=== PATIENT | male | born 1975 | race Caucasian/White ===

== ENCOUNTER 2019-08-11 13:40 | Outpatient (CLI) | payer MEDICARE, MEDICAID, SELFPAY ==
--- NOTE | 2019-08-11 14:00 | XR_ITS ---
WS: [id number] ABDOMEN: SUPINE FILM HISTORY: RENAL CALCULI COMPARISON: 12/24/2018 Carson rods are noted over the thoracolumbar region. Contiguous bridging hypertrophic bone format ion along the RIGHT lateral spine. Right kidney: 1.8 cm calcification in the expected location of the RIGHT kidney. There are additional multiple small calcific fragments adjacent to the large calcification. Left kidney: 9 mm calcification expected location of the LEFT kidney with adjacent metallic coils. XR/XR KUB [id number] IMPRESSION: 1. Stone burden has increased in the RIGHT kidney. The largest calcification m easures 1.8 cm with adjacent small calcifications. 2. LEFT renal calcification at 9 mm.
== END 2019-08-11 13:41 | disposition home or self-care (01) ==
LOC: RAD 13:45
PROVIDERS: PCP Nurse Practitioner; Visit Provider Nurse Practitioner Family
DX: N20.0 Calculus of kidney (principal)
CPT/HCPCS: 74018; 81001

== ENCOUNTER 2019-10-05 14:48 | Outpatient (CLI) | payer MEDICARE, MEDICAID, SELFPAY ==
--- NOTE | 2019-10-05 14:30 | XRR_ITS ---
PROCEDURE INFORMATION: Exam: XR Abdomen, 1 View Exam date and time: 10/05/2019 2:53 PM Age: 43 years old Clinical indication: Condition or disease; Kidney or ureter condition; Calculus (stone) in kidney; Prior surgery; Surgery type: Fistula; Additional info: Renal calculi TECHNIQUE: Imaging protocol: XR of the abdomen. Views: Frontal supine view of the abdomen. 1 View. COMPARISON: MA XR KUB 62072 08/11/2019 1:51 PM FINDINGS: Gastrointestinal tract: Normal. No bowel dilation. Intraperitoneal space: Surgical clips seen in the upper central pelvis. Organs: Calcified urinary tract stones are seen in both kidneys the largest is on the right side measuring 21 mm x 14 mm. Bones/joints: Lumbar spine levoscoliosis. Metallic rods are present in the lumbar spine. Osteoarthritis is seen in the lumbar spine. Other findings: Comparison to prior examination similar findings is seen. XR/XR KUB [id number] IMPRESSION: 1. Osteoarthritis, levoscoliosis, and orthopedic hardware lumbar spine 2. Bilateral a caliceal renal stones 3. Postsurgical changes upper central pelvis
== END 2019-10-05 14:49 | disposition home or self-care (01) ==
PROVIDERS: PCP Nurse Practitioner; Visit Provider Urology
DX: N20.0 Calculus of kidney (principal); M47.816 Spondylosis without myelopathy or radiculopathy, lumbar region
CPT/HCPCS: 74018

== ENCOUNTER 2019-10-12 10:41 | Outpatient (CLI) | payer MEDICARE, MEDICAID, SELFPAY ==
--- NOTE | 2019-10-12 10:30 | CT_ITS ---
WS: [id number] CT ABDOMEN PELVIS TECHNIQUE: Noncontrast CT of the abdomen and pelvis with coronal and sagittal reformatted images. CLINICAL INFORMATION: RENAL STONE COMPARISON: Multiple prior KUBs including October 05, 2019. KUBs dating back to DLP: 1072.[address] scans at [facility] use at least one of these dose optimization techniques: automat ed exposure control; mA and/or kV adjustment per patient size (includes targeted exams where dose is matched to clinical indication); or iterative reconstruction. FINDINGS: Evidence of prior embolization coils left kidney. Bilateral renal calculi largest on the right measur ing 1.3 x 1.1 cm . Smaller subcentimeter right calyceal tip calculi nonobstructing. Normal decompress ed right ureter. Several subcentimeter nonobstructing left renal parenchymal calculi. Lower pole left renal parenchyma l calculus measuring 1.1 x 0.7 CM. Left renal cortical atrophy. No obstructing ureteral calculi bilat erally. Mild diffuse bladder wall thickening. Bladder is contracted. Noncontrast liver is normal. Noncontrast spleen is normal. Normal GE junction. Lung bases are well ae rated. Prior Carson apolinar fixation with scoliosis thoracolumbar spine. Extensive thoracolumbar fusi on. Noncontrast pancreas is unremarkable. Normal caliber abdominal aorta. Prior partial sigmoid resection with anastomosis. Sigmoid colon appears normal. No evidence of high-g rade small or large bowel obstruction. Appendix is normal. Fat-containing inguinal hernias. No inguin al lymphadenopathy. No free fluid in the pelvis. CT/CT kidney stone [id number] IMPRESSION: 1. Bilateral renal parenchymal calculi. No obstructing renal or ureteral calcu li. Left renal cortical atrophy. 2. Large stone in the right renal pelvis measuring 1.3 x 1.1 cm. No evidence o f obstruction. 3. Prior sigmoid anastomosis. Sigmoid colon appears normal. 4. Mild diffuse bladder wall thickening. Bladder is contracted. 5. No free fluid in the pelvis. 6. Extensive thoracolumbar scoliosis with Carson apolinar fixation.
== END 2019-10-12 10:42 | disposition home or self-care (01) ==
LOC: RAD 10:43
PROVIDERS: Visit Provider Urology
DX: N20.0 Calculus of kidney (principal)
CPT/HCPCS: 74176

== ENCOUNTER 2019-10-17 10:26 | Day surgery (SDC) | payer MEDICARE, MEDICAID, SELFPAY ==
[2019-10-17] VITALS (7 sets, daily range): BP systolic 85–127; BP diastolic 60–87; PULSE 52–58; RESP 15–20; TEMP 36.2–37; O2SAT 96–100
--- NOTE | 2019-10-17 10:29 | XR_ITS ---
WS: [id number] ABDOMEN: SUPINE FILM HISTORY: Preop right ESWL COMPARISON: 10/05/2019 Normal bowel gas pattern. Extensive scoliosis thoracolumbar spine with Carson rods. Right kidney: Largest calcification over the RIGHT kidney measures 1.8 cm diameter. There are numerou s additional small fragments surrounding this larger stone. The large calcification has moved positio n and may now be retrograde into the lower pole of the RIGHT kidney. Left kidney: Numerous calcifications with the largest measuring 9 mm, no change. XR/XR KUB 13863 IMPRESSION: 1. Large RIGHT renal calcification measuring 1.8 cm. Calcification has changed position and may have gone retrograde into the renal pelvis. There are multipl e adjacent fragments surrounding the large calcification. 2. LEFT nephrolithiasis, unchanged.
[2019-10-17] MEDS: sodium chloride 0.9% 1,000 ML 30 ML IV (11:15)
[2019-10-17 11:23] LABS: Basophils % 0.3 %; Eosinophils # 0.5 10^3/uL (0.0-0.8); Eosinophils % 6.8 %; Hematocrit 47.8 % (42.0-52.0); Hemoglobin 15.2 g/dL (11.7-16.6); Lymphocytes # 1.8 10^3/uL (0.8-4.8); Lymphocytes % 24.5 %; Mean Corpuscular HGB Conc 31.8 g/dL (30.0-36.0); Mean Corpuscular Hemoglobin 26.9 pg (28.0-34.0); Mean Corpuscular Volume 84.5 fL (80-94); Mean Platelet Volume 10.7 fL (7.4-10.4); Monocytes # 0.6 10^3/uL (0.2-0.9); Monocytes % 7.6 %; Neutrophils # 4.46 10^3/uL (1.8-7.7); Neutrophils % 60.7 %; Nucleated Red Blood Cells % 0 %; Platelet Count 272 10^3/cmm (130-400); Red Blood Count 5.66 10^6/uL (4.1-5.3); Red Cell Distribution Width 13.3 % (12.1-15.1); White Blood Count 7.4 10^3/uL (4.0-10.0)
--- NOTE | 2019-10-17 11:23 | P.ANESASSM_ITS ---
Pre-Anesthetic Assessment Pre-Anesthetic Assessment: Height/Weight: Height 1.47 m Weight 68.039 kg Temp Pulse Resp BP Pulse Ox 98.6 F 58 L 18 127/87 96 10/17/19 10:50 10/17/19 10:50 10/17/19 10:50 10/17/19 10:50 10/17/19 10:50 Preop Diagnosis: Large right renal calculi Proposed Procedure: Operation Date: 10/17/19 12:00 Proposed Procedures p Cystoscopy 89447 29805 N20.0(Not Applicable) - Fred Kaye MD s Ureteral Stent Placement(Right) - Fred Kaye MD s ESWL(Not Applicable) - Fred Kaye MD Familial anesthetic complications: HX malignant hyperthermia causing code Was Beta Beatrice taken within 24 hours: Yes Last intake: Intake Last Liquid Date 10/16/19 Last Liquid Time 21:00 Last Solid Date 10/16/19 Last Solid Time 13:00 Social: Social History: No alcohol and No tobacco Exam: Pre-Anes Outpt Exam: alert, oriented x 3, clear to auscultation bila terally and regular rate & rhythm Airway: Submandibular: WNL MP: 4 Dentition: Other (missing) A dditional comments: large neck circumference, small mouth opening Pulmonary: Comments: Vaping lung injury last year (december) pneumonia several years ago (aspirated in recovery room) and ended up with pulmonary edema CV/HEM: CV/HEM: HTN and Murmur (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, but its gone now) : Comments: kidney stones Musc/skel: Musc/skel: Scoliosis 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, generalized weakness though Anesthetic Plan: ASA status: 3 Anesthesia: General (TIVA) Risk of > 500 ml blood loss (7ml/kg in children): No Meds/Allergies Current Medications: Current Medications Generic Name Dose Route Start Last Admin Trade Name Freq PRN Reason Stop Dose Admin Sodium Chloride 1,000 mls @ 30 ml s/hr 10/17/19 11:00 10/17/19 11:15 Sodium Chloride 0.9% IV 10/18/19 10:59 30 mls/hr .Q24H CHRISS Administration PFSH Anesthesia PFSH: Medical History Acute cystitis without hematuria Chronic SI joint pain Depression Hypertension Muscular dystrophy Kumar Renal calculi Unspecified renal colic Surgical History CVF (colovesical fistula) Repaired 01/2019 History of foot surgery History of spinal surgery History of surgery on upper extremity Hx of colonoscopy with polypectomy Status post laser lithotripsy of ureteral calculus Family History Family/Other Diabetes Sister Scoliosis Social History Smoking and tobacco status: former smoker Alcohol intake: never Adopted: No Caregiver/support person: No Marital status: Single Current occupational status: disabled History of recent travel: No Current gender identity: Male Data Anesthesia CBC & Chem 7: 10/17/19 11:15 10/17/19 11:15 Cardiac Studies: No Data to Display
[2019-10-17 11:53] LABS: Alanine Aminotransferase 31 U/L (0-41); Albumin Level 4.1 g/dL (3.5-5.2); Alkaline Phosphatase 77 IU/L (40-130); Anion Gap 13.2 (5-19); Aspartate Amino Transferase 26 U/L (0-40); Blood Urea Nitrogen 13 mg/dL (6-20); Calcium 9.2 mg/dL (8.5-10.5); Carbon Dioxide 26 mmol/L (22-29); Chloride 102 mmol/L (98-107); Globulin 2.7 g/dL (1.3-4.6); Glucose 94 mg/dL (65-115); Osmolality Calculated 280 mOsm/kg (285-295); Potassium 4.2 mmol/L (3.5-5.1); Sodium 137 mmol/L (136-145); Total Bilirubin 0.4 mg/dL (0.15-1.2); Total Protein 6.8 g/dL (6.6-8.7)
--- NOTE | 2019-10-17 12:15 | P.HPUD_ITS ---
Surgery/Procedure H&P Update DATE OF PROCEDURE: October 17, 2019 DATE H&P PERFORMED: 10/05/19 H&P UPDATE INFORMATION: I have reviewed H&P completed within last 30 days, I have examined patient prior to procedure, No changes to prior documentation and H&P is in [facility] [place] on date indicated PREOP DIAGNOSIS: Large right renal calculi PLANNED PROCEDURE: Operation Date: 10/17/19 12:00 Proposed Procedures p Cystoscopy [id number] 29933 N20.0(Not Applicable) - Fred Kaye MD s Ureteral Stent Placement(Right) - Fred Kaye MD s ESWL(Not Applicable) - Fred Kaye MD
--- NOTE | 2019-10-17 12:16 | P.OP_ITS ---
Operative Report Date of procedure: October 17, 2019 Pre-op Diagnosis: Large right renal calculi Post-op diagnosis: same Procedure Done: 1. Cystoscopy with right ureteral stent placement 2. Extracorporeal shockwave lithotripsy right renal calculus Implants: Right ureteral stent Specimens removed/disposition: None Pathology: none sent Surgeon: Vargas Anesthesia: General Estimated blood loss: None Complications: None Findings: Large right renal pelvic stone easily identified and treated with 2500 shocks. Good change. Disposition: PACU Brief History: Tom Acevedo is a very pleasant 33-year-old white male with a history of recurrent urolithiasis recently discovered to have an increasing size and mobility to the right renal pelvic stone. CT scan preoperatively showed the stone in the renal pelvis but nonobstructing. Shortly before the CT scan it is been located at the [facility]. We elected to proceed with treatment initially with stent placement followed by ESWL. Based on the size of the stone it is likely that he will require more than 1 treatment and this was reviewed with him preoperatively. Procedure: After routine preoperative evaluation examination and obtaining of informed consent he was taken to the operating suite on 10/17/2019 where general anesthesia was administered without difficulty after appropriate timeout was performed, SCDs confirmed to be functioning, preoperative antibiotics administered, beta-abhishek protocol confirmed. Malignant hyperthermia precautions were taken by anesthesia. Prepped and draped in usual sterile fashion in dorsolithotomy position pain careful attention to avoiding pressure points. 21 Palestinian cystoscope with 30 degree lens was introduced into the urethral meatus and advanced into the bladder under videoscopy. Bladder cyst have manically examined and found to have no stones or other gross abnormalities. Flexible tip guidewire was then advanced up the right ureter bypassing the stone in the renal pelvis and a 7 Palestinian by 26 cm double-pigtail stent was advanced over the guidewire through the cystoscope into appropriate position as confirmed via fluoroscopy and cystoscopy. Bladder was drained. He was then repositioned in supine position pain careful attention to avoiding pressure points. The stone was brought to the focal point utilizing biplanar fluoroscopy with the shock head positioned posteriorly. Shockwave was initiated at a rate of 60 with an intensity of 1 and advanced to an intensity of 4. After approximately 300 shocks a several minute pause was conducted. A total of 2500 shocks were administered with position changes as indicated. Stone was easily identifiable. Change was noted. Tolerated procedure well without complications and was awakened in the operating room and returned to recovery in stable condition. PLANS: 1. Follow-up in approximately 2 weeks with MICHAEL. I expect that he will require second treatment.
[2019-10-17] MEDS: levofloxacin-dextrose 5 % 500 MG/100 ML PREMIX 100 MG IV (12:19)
--- NOTE | 2019-10-17 13:33 | SUR.PHASEI ---
1331 PATIENT TO PACU FROM OR. RR EVEN AND UNLABORED. SPO2 98% ON SIMPLE MASK AT 8L.
--- NOTE | 2019-10-17 13:53 | SUR.PHASEI ---
1350 PATIENT TO OPS. TOLERATING ICE CHIPS. RR EVEN AND UNLABORED. NO DISTRESS.
[2019-10-17] MEDS: HYDROcodone-acetaminophen 5-325 mg Tablet 1 TAB PO (14:18)
== END 2019-10-17 14:45 | disposition home or self-care (01) ==
PROVIDERS: Visit Provider Urology
PROC: 0TJB8ZZ Inspection of Bladder, Via Natural or Artificial Opening Endoscopic (ICD-10-PCS; CPT 52000; principal; 2019-10-17 12:00)
PROC: (CPT 50605; 2019-10-17 12:00)
PROC: (CPT 50590; 2019-10-17 12:00)
DX: N20.1 Calculus of ureter (principal); I10 Essential (primary) hypertension; F32.9 Major depressive disorder, single episode, unspecified; Z87.891 Personal history of nicotine dependence
CPT/HCPCS: 50590; 52332; 12345; 36415; 74018; 80053; 85025; C2625; J1956; J2704; J3010; J3490; J7030

== ENCOUNTER 2019-10-28 08:46 | Outpatient (CLI) | payer MEDICARE, MEDICAID, SELFPAY ==
--- NOTE | 2019-10-28 08:30 | XR_ITS ---
WS: [id number] KUB, 10/28/2019 Clinical Data: Stones Comparison: KUB, 10/17/2019. Findings: The large right renal calculus has fragmented. Small fragments overlying the inferior pole of the rig ht kidney. There is a fragment in the right ureteropelvic junction. A right ureteral catheter has bee n inserted. There are left renal calculi. There are sutures overlying the inferior pole of the left k idney. The patient has a levorotoscoliosis of the lumbar spine and there are Carson rods extendin g from the thoracic vertebral bodies inferiorly to the L4 vertebral body level. There are surgical st aples in the region of the sigmoid colon. XR/XR KUB [id number] Impression: 1. Fragmentation of large right renal calculus with fragments in the inferior p ole of the right kidney and the proximal right ureter. 2. Insertion of right ureteral catheter. 3. No change in left renal calculi.
== END 2019-10-28 08:47 | disposition home or self-care (01) ==
LOC: RAD 08:49
PROVIDERS: Visit Provider Urology
DX: N20.0 Calculus of kidney (principal)
CPT/HCPCS: 74018; 81001

== ENCOUNTER 2019-10-31 08:35 | Outpatient (CLI) | payer MEDICARE, MEDICAID, SELFPAY ==
--- NOTE | 2019-10-31 13:00 | XR_ITS ---
WS: [id number] EXAM: ABDOMINAL KUB DATE OF EXAMINATION: 10/31/2019, 0847 hours COMPARISON: None. HISTORY: Patient is 43 years old with follow-up kidney stones. FINDINGS: Right double-J ureteral stent remains in place. Calcifications along the mid right ureter are again s een. There is interval migration of several of the calcifications. I question if one of the larger ca lcifications noted previously in the area of the renal pelvis juncture has migrated superiorly back i nto the kidney. Several calcifications are seen over the mid to inferior right kidney silhouette. Himanshu cification overlying the left kidney silhouette similar. Endovascular coiling over the left kidney al so similar. Staple line for prior colon surgery in the false pelvis region. Spine hardware rods noted again. Scoliosis in the spine again noted. XR/XR KUB [id number] IMPRESSION: Right double-J ureteral stent remains in place. I question if the largest calci fication in the area of the right renal pelvis and proximal ureter has migrated back into the kidney. Additional calcifications appear to have progressed infe riorly down along the stent now located around the L5 level. No real change in number and position of calcifications involving the left kidn ey.
== END 2019-10-31 08:36 | disposition home or self-care (01) ==
LOC: RAD 08:38
PROVIDERS: Visit Provider Urology
DX: N20.0 Calculus of kidney (principal); Z96.0 Presence of urogenital implants
CPT/HCPCS: 74018

== ENCOUNTER 2019-11-07 10:30 | Day surgery (SDC) | payer MEDICARE, MEDICAID, SELFPAY ==
[2019-11-04 13:37] VITALS: BMI 31.3
--- NOTE | 2019-11-07 10:31 | XR_ITS ---
WS: [id number] ABDOMEN KUB CLINICAL INFORMATION: Renal/ureteral calculi. COMPARISON: October 31, 2019 FINDINGS: Right double-J ureteral stent appears stable. Stable right renal parenchymal calculi. Similar-appeari ng fragmented calculi along the right mid ureteral stent. Stable left renal parenchymal calculi and e mbolization coils. Thoracolumbar scoliosis. Carson rods. Surgical anastomosis in the pelvis XR/XR KUB [id number] Impression: 1. Stable right double-J ureteral stent. 2. Similar-appearing bilateral renal parenchymal calculi with fragmented calcu li along the mid right ureteral stent
[2019-11-07 10:56] VITALS: BP 128/79; PULSE 59; RESP 18; TEMP 36.8; O2SAT 96
[2019-11-07] MEDS: sodium chloride 0.9% 1,000 ML 30 ML IV (11:00)
--- NOTE | 2019-11-07 11:10 | ANES.PREANE2 ---
Pre-Anesthetic Assessment Pre-Anesthetic Assessment: Height/Weight: Height 1.47 m Weight 68.039 kg Temp Pulse Resp BP Pulse Ox 98.2 F 59 L 18 128/79 96 11/07/19 10:56 11/07/19 10:56 11/07/19 10:56 11/07/19 10:56 11/07/19 10:56 Preop Diagnosis: Residual fragments right kidney following ESWL Proposed Procedure: Operation Date: 11/07/19 12:00 Proposed Procedures p ESWL 76274 N20.0(Not Applicable) - Fred Kaye MD Was Beta Beatrice taken within 24 hours: Yes Last intake: Intake Last Liquid Date 11/06/19 Last Liquid Time 20:30 Last Solid Date 11/06/19 Last Solid Time 10:30 Social: Social History: No alcohol and No tobacco Exam: Pre-Anes Outpt Exam: alert, oriented x 3, clear to auscultation bilaterally and regular rate & rhythm Airway: Submandibular: WNL MP: 2 History/ROS: No significant history except as noted and No significant complaints Pulmonary: Pulmonary: None reported CV/HEM: CV/HEM: HTN Comments: History of Pediatric Murmur no longer clinically significant : Comments: Recurrent renal calculi Hepatic: Hepatic: None reported GI: GI: None reported Metabolic: Metabolic: None reported Musc/skel: Comments: Muscular Dystrophy Anesthetic Plan: ASA status: 3 Anesthesia: General Other: PATIENT HAS A PERSONAL EPISODE OF MALIGNANT HYPERTHERMIA Meds/Allergies Current Medications: Current Medications Generic Name Dose Route Start Last Admin Trade Name Freq PRN Reason Stop Dose Admin Sodium Chloride 1,000 mls @ 30 ml s/hr 11/07/19 07:30 11/07/19 11:00 Sodium Chloride 0.9% IV 11/08/19 07:29 30 mls/hr .Q24H CHRISS Administration PFSH Anesthesia PFSH: Medical History Acute cystitis without hematuria Chronic SI joint pain Depression Hypertension Muscular dystrophy Kumar Renal calculi Unspecified renal colic Surgical History CVF (colovesical fistula) Repaired 01/2019 History of foot surgery History of spinal surgery History of surgery on upper extremity Hx of colonoscopy with polypectomy Status post laser lithotripsy of ureteral calculus Family History Family/Other Diabetes Sister Scoliosis Social History Smoking and tobacco status: former smoker Alcohol intake: never Adopted: No Caregiver/support person: No Marital status: Single Current occupational status: disabled History of recent travel: No Current gender identity: Male Data Anesthesia Cardiac Studies: No Data to Display
--- NOTE | 2019-11-07 12:17 | W.PM.OPSUD ---
Surgery/Procedure H&P Update DATE OF PROCEDURE: November 07, 2019 DATE H&P PERFORMED: 10/31/19 H&P UPDATE INFORMATION: I have reviewed H&P completed within last 30 days, I have examined patient prior to procedure, Changes to prior documentation as noted here and H&P is in [facility] EMR on date indicated PREOP DIAGNOSIS: Residual fragments right kidney following ESWL PLANNED PROCEDURE: Operation Date: 11/07/19 12:00 Proposed Procedures p ESWL 09378 N20.0(Not Applicable) - Fred Kaye MD
[2019-11-07] MEDS: levofloxacin-dextrose 5 % 500 MG/100 ML PREMIX 100 MG IV (12:20)
--- NOTE | 2019-11-07 13:06 | P.OP_ITS ---
Operative Report Date of procedure: November 07, 2019 Pre-op Diagnosis: Residual fragments right kidney following ESWL Post-op diagnosis: same Procedure Done: 1. Extracorporeal shockwave lithotripsy to multiple right renal calcul/i fragments Specimens removed/disposition: None Pathology: none sent Surgeon: Vargas Oiling Machine Operator: Lithotripsy Regional Engagement Consultant: Bijan Carr Anesthesia: General Estimated blood loss: None Urine output: Not measured Complications: None Findings: 2500 shocks administered to multiple collections of stones with excellent response. Tolerated well Condition: stable Disposition: PACU Brief History: Tom Acevedo is a very pleasant 43-year-old white male with history of recurrent urolithiasis who recently underwent ESWL to a large right renal pelvic stone at time of stenting. He had several clusters of stones that were too large to pass in the right kidney and one area of moderate sized fragments in the proximal ureter. Back now for retreatment. Procedure: After routine preoperative evaluation examination and obtaining of informed consent he was taken to the operating suite on 11/07/2019 where general anesthesia was administered without difficulty after appropriate timeout was performed, SCDs confirmed to be functioning, preoperative antibiotics administered, beta-abhishek protocol confirmed. Malignant hyperthermia precautions were taken due to his history. Positioned supine on the ESWL unit with a posterior shock head position. Treatment was initiated in a rate of 60 and a intensity of 1 and advanced to an intensity of 4. Rate was maintained at 60 throughout. Good change was noted at all areas that were treated with 3 specific areas in the renal pelvis and one area in the proximal ureter. Total of 2500 shocks were administered. A 3-minute pause was conducted after about 300 shocks. Tolerated the procedure well without complications and was awakened in the operating room and returned to the recovery room in stable condition. PLANS: 1. Follow-up in 1 week for possible cystoscopy stent removal. Associated Problem List Diagnoses (1) Renal calculi:
[2019-11-07 13:13] VITALS: BP 96/67; PULSE 69; RESP 12; TEMP 36.1; O2SAT 98
[2019-11-07 13:20] VITALS: BP 94/69; PULSE 69; RESP 16; O2SAT 97
[2019-11-07 13:25] VITALS: BP 102/68; PULSE 63; RESP 17; O2SAT 100
[2019-11-07 13:30] VITALS: BP 98/72; PULSE 67; RESP 18; TEMP 36.4; O2SAT 97
[2019-11-07 14:00] VITALS: BP 109/79; PULSE 64; RESP 18; O2SAT 96
== END 2019-11-07 14:30 | disposition home or self-care (01) ==
PROVIDERS: Visit Provider Urology
PROC: (CPT 50590; principal; 2019-11-07 12:00)
DX: N20.0 Calculus of kidney (principal); I10 Essential (primary) hypertension; Z87.891 Personal history of nicotine dependence; Z96.0 Presence of urogenital implants
CPT/HCPCS: 50590; 12345; 74018; 96365; J1956; J2250; J2704; J3010; J3490; J7030

== ENCOUNTER 2019-11-15 13:33 | Outpatient (CLI) | payer MEDICARE, MEDICAID, SELFPAY ==
--- NOTE | 2019-11-15 13:15 | XRR_ITS ---
PROCEDURE INFORMATION: Exam: XR Abdomen, 1 View Exam date and time: 11/15/2019 1:50 PM Age: 43 years old Clinical indication: Condition or disease; Kidney or ureter condition; Calculus (stone) in kidney; Additional info: Kidney stone TECHNIQUE: Imaging protocol: XR of the abdomen. Views: Frontal supine view of the abdomen. 1 View. COMPARISON: MA XR KUB [id number] 11/07/2019 10:38 AM FINDINGS: Gastrointestinal tract: Normal. No bowel dilation. Intraperitoneal space: There are postsurgical sutures in the upper central pelvis. Organs: The stones were present on prior examination and now appears decreased in density . The left kidney discloses multiple caliceal stones in the upper pole collecting system measuring 6 mm, the mid collecting system measuring 2.2 mm, and a conglomerate collection of stones in the lower pole collecting system the largest stone measures 9.6 mm x 7.8 mm. there are metallic wire near the lower pole of the left kidney stable since prior Vasculature: A double-J ureteral stent is in place on the right side appearing well positioned. The right kidney shows faint caliceal stones lower pole. the largest of these stones measures 7 mm. Bones/joints: The lumbar spine shows osteoarthritis and levoscoliosis status post placement of metallic rods. XR/XR KUB [id number] IMPRESSION: 1. No acute GI abnormality. 2. Double-J ureteral stent in good position on the right side. 3. Multiple bilateral caliceal stones 4. Metallic wire in the left lower quadrant 5. Lumbar spine osteoarthritis, levoscoliosis, and metallic rods. 6. A surgical sutures upper central pelvis
== END 2019-11-15 13:34 | disposition home or self-care (01) ==
LOC: RAD 13:36
PROVIDERS: Visit Provider Urology
DX: N20.0 Calculus of kidney (principal); Z96.0 Presence of urogenital implants; M47.816 Spondylosis without myelopathy or radiculopathy, lumbar region; M41.86 Other forms of scoliosis, lumbar region
CPT/HCPCS: 74018; 81001

== ENCOUNTER → 2019-12-19 14:46 | Outpatient (BNVA) | payer MEDICARE, MEDICAID, SELFPAY | PROVIDERS: Visit Provider Family Medicine Adult Medicine | DX: N20.0 Calculus of kidney (principal); I10 Essential (primary) hypertension; G71.00 Muscular dystrophy, unspecified; Z76.89 Persons encountering health services in other specified circumstances; G89.29 Other chronic pain; M53.3 Sacrococcygeal disorders, not elsewhere classified; M41.50 Other secondary scoliosis, site unspecified | CPT/HCPCS: 80053; 81003; 85025; 86140 ==

== ENCOUNTER 2020-02-22 12:38 | Outpatient (CLI) | payer MEDICARE, MEDICAID, SELFPAY ==
--- NOTE | 2020-02-22 12:47 | XRR_ITS ---
PROCEDURE INFORMATION: Exam: XR Abdomen, 1 View Exam date and time: 02/22/2020 12:56 PM Age: 44 years old Clinical indication: Condition or disease; Kidney or ureter condition; Calculus (stone) in kidney; Prior surgery; Surgery type: Colon, kidney, spine; Additional info: Urinary calculus TECHNIQUE: Imaging protocol: XR of the abdomen. Views: Frontal supine view of the abdomen. 1 View. COMPARISON: CR XR KUB [id number] 11/15/2019 1:47 PM FINDINGS: Gastrointestinal tract: Normal. No bowel dilation. There is mild scattered colonic fecal stasis in the ascending transverse and proximal descending colon. Intraperitoneal space: A circumscribed collection of sutures is seen in the upper central aspect of the pelvis stable since prior examination. Organs: There is caliceal stones in place in the left kidney a in the upper pole measuring 5.6 mm, midpole 3 mm, and lower pole 11 mm. There is a metallic wire in place in the projection of the lower pole of the left kidney. These findings are stable since prior examination. The right kidney is unremarkable. Prior study showed a ureteral stent on the right side which is now been removed. Bones/joints: The lumbar spine shows severe osteoarthritis and levoscoliosis. A metallic apolinar is in place extending into the proximal aspect of the lumbar spine. XR/XR KUB [id number] IMPRESSION: 1. No acute GI abnormality. 2. Scattered colonic fecal stasis as noted 3. Stable caliceal stones in the left kidney. 4. Lumbar spine osteoarthritis, levoscoliosis, metallic apolinar. 5. Surgical sutures upper central pelvis are 6. Prior ureteral stent on the right side has been removed
== END 2020-02-22 12:39 | disposition home or self-care (01) ==
PROVIDERS: PCP Family Medicine Adult Medicine; Visit Provider Urology
DX: N20.0 Calculus of kidney; Z96.0 Presence of urogenital implants; M47.816 Spondylosis without myelopathy or radiculopathy, lumbar region; K59.89 Other specified functional intestinal disorders
CPT/HCPCS: 74018

== ENCOUNTER 2020-04-18 15:01 | Outpatient (CLI) | payer MEDICARE, MEDICAID, SELFPAY ==
--- NOTE | 2020-04-18 15:00 | XR_ITS ---
WS: [id number] KUB, AP view, 04/18/2020 Clinical Data: RENAL STONE Comparison: KUB, 02/22/2020. Findings: There are calcifications overlying the left kidney. There are small metal surgical items overlying th e left kidney in the inferior pole which have may have been placed after doing a surgical or radiolog ic procedure. There are sutures in the central portion of the superior true pelvis. The patient is had rods to correct a severe scoliosis. The patient has a levoscoliosis of the lumbar spine and a dextroscoliosis of the thoracic spine. There is a large amount of fecal material througho ut the colon. XR/XR KUB [id number] Impression: 1. Multiple left renal calcifications but none on the right. 2. No change in scoliosis, rods for reducing scoliosis, surgical item sin the l eft kidney and charito in the upper true pelvis.
== END 2020-04-18 15:02 | disposition home or self-care (01) ==
LOC: RAD 15:07
PROVIDERS: PCP Family Medicine Adult Medicine; Visit Provider Urology
DX: N20.0 Calculus of kidney (principal)
CPT/HCPCS: 74018; 81003

== ENCOUNTER → 2020-07-06 11:44 | Outpatient (BNVA) | payer MEDICARE, MEDICAID, SELFPAY | PROVIDERS: PCP Family Medicine Adult Medicine; Visit Provider Family Medicine Adult Medicine | DX: G71.00 Muscular dystrophy, unspecified (principal); M41.50 Other secondary scoliosis, site unspecified; I10 Essential (primary) hypertension; M15.9 Polyosteoarthritis, unspecified; M53.3 Sacrococcygeal disorders, not elsewhere classified; M54.5 Low back pain; G89.29 Other chronic pain | CPT/HCPCS: 80053; 85651; 86140 ==

== ENCOUNTER → 2020-07-19 13:42 | Outpatient (BNVA) | payer MEDICARE, MEDICAID, SELFPAY | PROVIDERS: PCP Family Medicine Adult Medicine; Referring Provider Family Medicine Adult Medicine; Visit Provider Anesthesiology Pain Medicine | DX: G89.29 Other chronic pain (principal); M47.816 Spondylosis without myelopathy or radiculopathy, lumbar region; M54.16 Radiculopathy, lumbar region; G71.00 Muscular dystrophy, unspecified; M41.9 Scoliosis, unspecified | CPT/HCPCS: 99204 ==

== ENCOUNTER 2020-08-09 15:02 | Outpatient (CLI) | payer MEDICARE, MEDICAID, SELFPAY ==
--- NOTE | 2020-08-09 15:15 | MR_ITS ---
WS: [id number] MRI LUMBAR SPINE NONCONTRAST HISTORY: M54.16 - Radiculopathy, lumbar region COMPARISON: CT lumbar spine 03/25/2017 TECHNIQUE: Sagittal and axial multisequence imaging is submitted. Quality of this examination is significantly limited by scoliosis. Fusion hardware. Marked LEFT rotos coliosis of the thoracolumbar spine. Fusion hardware causing significant deformity of the vertebral bodies. Mild disc space narrowing and desiccation. Conus terminates normally at L1-2 disc level. L1-L2: Disc space cannot be evaluated due to distortion from the hardware. L2-L3: Mild central and foraminal stenosis. Otherwise difficult to visualize the disc space for subtl e disc protrusions. L3-L4: Diffuse annular disc bulging and osteophytic ridging. Mild central stenosis with severe bilate ral foraminal stenosis. L4-L5: Large posterior laminectomy defect. No stenosis. L5-S1: No stenosis. Large posterior laminectomy defect. Marked atrophy of the spinal muscles. MR/MR lumbar spine wo con* [id number] IMPRESSION: 1. Significantly limited evaluation of the lumbar spine due to extensive artif act from patient's Carson rods. 2. There does appear to be mild central with severe bilateral foraminal stenos is at the L3-4 level. 3. Disc and foramina at L1-2 and L2-3 are poorly visualized due to artifact. 4. Large posterior laminectomy defects were better visualized on the prior CT from 2018.
== END 2020-08-09 15:03 | disposition home or self-care (01) ==
LOC: RADSHAW 15:09
PROVIDERS: PCP Family Medicine Adult Medicine; Visit Provider Anesthesiology Pain Medicine
DX: M54.16 Radiculopathy, lumbar region (principal); Z98.1 Arthrodesis status
CPT/HCPCS: 72148

== ENCOUNTER → 2020-09-26 10:21 | Outpatient (BNVA) | payer MEDICARE, MEDICAID, SELFPAY | PROVIDERS: PCP Family Medicine Adult Medicine; Visit Provider Anesthesiology Pain Medicine | DX: G89.29 Other chronic pain (principal); M79.18 Myalgia, other site; M54.16 Radiculopathy, lumbar region; M48.061 Spinal stenosis, lumbar region without neurogenic claudication; M47.819 Spondylosis without myelopathy or radiculopathy, site unspecified; M79.604 Pain in right leg; M79.605 Pain in left leg; Z87.891 Personal history of nicotine dependence | CPT/HCPCS: 20553; 99214; J1030; J3490 ==

== ENCOUNTER 2020-10-17 14:17 | Outpatient (CLI) | payer MEDICARE, MEDICAID, SELFPAY ==
--- NOTE | 2020-10-17 14:00 | XR_ITS ---
WS: [id number] KUB, AP view, 10/17/2020 Clinical Data: RENAL CALCULI Comparison: KUB, 04/18/2020. Findings: No abnormal intraabdominal masses are seen. There is no dilatated small bowel or evidence of obstruct ion. There are calcifications overlying the left kidney and surgical charito overlying the inferior pole o f the left kidney. There is a severe levoscoliosis. There are pedicle screws with connecting apolinar on t he right from T12 through L2. The inferior aspect of another Carson apolinar is visible superior to T1 2. There is a large amount of fecal material in the colon. There are sutures in the true pelvis from probable colon surgery. XR/XR KUB [id number] Impression: Left renal calcifications.
== END 2020-10-17 14:18 | disposition home or self-care (01) ==
LOC: RAD 14:21
PROVIDERS: PCP Family Medicine Adult Medicine; Visit Provider Urology
DX: N20.0 Calculus of kidney (principal)
CPT/HCPCS: 74018; 81003

== ENCOUNTER → 2021-05-28 15:40 | Outpatient (BNVA) | payer MEDICARE, MEDICAID, SELFPAY | PROVIDERS: PCP Family Medicine Adult Medicine; Visit Provider Family Medicine Adult Medicine | DX: I10 Essential (primary) hypertension (principal); M54.16 Radiculopathy, lumbar region; G71.00 Muscular dystrophy, unspecified; R19.5 Other fecal abnormalities; E66.9 Obesity, unspecified; N20.0 Calculus of kidney; Z13.6 Encounter for screening for cardiovascular disorders | CPT/HCPCS: 80053; 84443; 85025 ==

== ENCOUNTER 2021-07-02 14:33 | Outpatient (CLI) | payer MEDICARE, MEDICAID, SELFPAY ==
--- NOTE | 2021-07-02 14:15 | XR_ITS ---
WS: [id number] Exam: XR KUB [id number] Date/Time of Exam: 07/02/2021 2:15 PM Reason For Exam: RENAL CALCULI Calcifications superimpose both renal silhouettes and may represent bilateral renal calculi. Large am ount retained stool in the colon. No bowel obstruction or free air. Postoperative change of the lower thoracic and lumbar spine with the fusion as well as residual hardware noted. Significant levoscolio sis of the lower thoracic and lumbar spine. Surgical sutures in the mid pelvic region. XR/XR KUB [id number] IMPRESSION: 1. Calcifications are noted in the region of both kidneys that may represent re nal calculi. Additional metallic coils are seen along the medial aspect of the left renal silhouette. 2. Constipation. 3. Postoperative changes of the lower thoracic and lumbar spine with scoliosis and advanced degenerative changes.
== END 2021-07-02 14:34 | disposition home or self-care (01) ==
LOC: RAD 14:39
PROVIDERS: PCP Family Medicine Adult Medicine; Visit Provider Urology
DX: N20.0 Calculus of kidney (principal); K59.00 Constipation, unspecified
CPT/HCPCS: 74018; 81003

== ENCOUNTER → 2021-09-12 13:11 | Outpatient (BNVA) | payer MEDICARE, MEDICAID, SELFPAY | PROVIDERS: PCP Family Medicine Adult Medicine; Visit Provider Anesthesiology Pain Medicine | DX: G89.29 Other chronic pain (principal); M54.16 Radiculopathy, lumbar region; M48.061 Spinal stenosis, lumbar region without neurogenic claudication; M47.816 Spondylosis without myelopathy or radiculopathy, lumbar region; R10.2 Pelvic and perineal pain; M79.604 Pain in right leg; M79.605 Pain in left leg; G71.00 Muscular dystrophy, unspecified; Z87.891 Personal history of nicotine dependence | CPT/HCPCS: 99214 ==

== ENCOUNTER → 2021-11-12 13:22 | Outpatient (BNVA) | payer MEDICARE, MEDICAID, SELFPAY | PROVIDERS: PCP Family Medicine Adult Medicine; Visit Provider Anesthesiology Pain Medicine | DX: G89.29 Other chronic pain (principal); M47.816 Spondylosis without myelopathy or radiculopathy, lumbar region | CPT/HCPCS: 64493; 64494; 64495; J3490 ==

== ENCOUNTER → 2021-11-26 10:38 | Outpatient (BNVA) | payer MEDICARE, MEDICAID, SELFPAY | PROVIDERS: PCP Family Medicine Adult Medicine; Visit Provider Anesthesiology Pain Medicine | DX: M54.16 Radiculopathy, lumbar region (principal); M48.062 Spinal stenosis, lumbar region with neurogenic claudication; G89.29 Other chronic pain; M79.604 Pain in right leg; M79.605 Pain in left leg; Z87.891 Personal history of nicotine dependence; R10.2 Pelvic and perineal pain | CPT/HCPCS: 99214 ==

== ENCOUNTER 2021-11-29 20:36 | Emergency (ER) | payer MEDICARE, MEDICAID, SELFPAY ==
[2021-11-29 20:41] VITALS: BP 144/107; PULSE 91; RESP 18; TEMP 36.7; O2SAT 100; BMI 29.2
[2021-11-29] MEDS: midazolam 1 mg/mL INJ 2 mL 2 MG IM (20:47)
--- NOTE | 2021-11-29 20:51 | W.ED.GENADLT ---
HPI - General Adult General: Chief complaint: Psychiatric Symptoms Stated complaint: BEHAVIORAL ISSUES Time Seen by Provider: 11/29/21 20:41 History of Present Illness: Patient is a 45-year-old male with a history of intellectual delay, chronic back pain presented to the emergency room for for concerns for aggressive behavior. Patient was at an assisted living facility when he became aggressive with nursing staff. Patient is remorseful for his actions currently. Police officers tells us that when they arrived, patient was very aggressive and throwing kicks and punches. On arrival, patient's AAOx3, coherent. Patient tells me that she was performed for what happened earlier today. Patient denies any suicidal ideation or homicidal ideation. Patient denies any active hallucinations. Onset:earlier today Duration:ongoing Location:home Severity:moderate Associated symptoms: Deny chest pain, dyspnea, nausea, rash, palpitations or vomiting Review of Systems Const: Denies: fever(s) or chills Eyes: Denies: change in vision ENMT: Denies: mouth pain Card: Denies: chest pain or palpitations Resp: Denies: dyspnea or non-productive cough GI: Denies: abdominal pain, nausea, vomiting or diarrhea : Denies: dysuria Musc: Denies: extremity pain Skin/Breast: Denies: rash or new lesions Neuro: Denies: weakness in extremities Psych: Reports: other (+aggressive behavior) Alverto/Lymph: Denies: easy bruising PFS ED PFSH: Medical History Acute cystitis without hematuria Chronic low back pain Chronic SI joint pain Depression Hypertension Loose bowel movement Muscular dystrophy Obesity (BMI 30.0-34.9) Renal calculi Unspecified renal colic Surgical History CVF (colovesical fistula) (~12/2018) Repaired 01/2019 History of foot surgery History of spinal surgery History of surgery on upper extremity Hx of colonoscopy with polypectomy Status post laser lithotripsy of ureteral calculus Family History Family/Other Diabetes Sister Scoliosis Grandmother Cancer Other Down syndrome Denies family history of Anesthesia complication Bleeding disorder Social History Smoking and tobacco status: former smoker Alcohol intake: never Physical Exam Const: COMMON NORMALS: alert HENMT: COMMON NORMALS: atraumatic HEAD & SCALP: atraumatic MOUTH: moist mucous membranes not abnormal Eye: COMMON NORMALS: EOMs intact bilaterally and conjunctivae normal CONJUNCTIVA: Yes conjunctivae normal Neck/C-Spine: COMMON NORMALS: full ROM and supple Resp: COMMON NORMALS: normal respiratory effort and clear to auscultation bilaterally AUSCULTATION: clear to auscultation bilaterally Cardio: COMMON NORMALS: regular rate RATE: regular rate GI: COMMON NORMALS: Soft to palpation and non-tender PALPATION: Yes Soft to palpation Extremity: COMMON NORMALS: full ROM Neuro: SENSORIUM/ORIENTATION: Yes alert MOTOR EXAM: No Abnormal motor strength present and Other motor observations present (no focal motor deficits) Psych: COMMON NORMALS: speech normal SPEECH: Yes normal speech MOOD & AFFECT: Yes euthymic mood Course Vital Signs: Vital signs: Vital Signs Temperature 98.0 F 11/29/21 20:41 Pulse Rate 91 11/29/21 20:41 Respiratory Rate 18 11/29/21 20:41 Blood Pressure 145/96 11/29/21 21:54 Pulse Oximetry 100 11/29/21 20:41 Oxygen Delivery Me thod 11/29/21 20:41 MDM - General Adult Medical Decision Making [45]yo patient w/ hx of intellectual disability presenting for aggressive behavior at [facility] facility. Patient is remorseful. HDS, exam within normal limit Thoughts are linear and organized, and the patient has no AH/VH, or HI. Clinically the patient displays no overt toxidrome; they are well appearing, with low suspicion for toxic ingestion given history and exam. Symptoms unlikely 2/2 anemia, hypothyroidism, infection, or ICH. [9:10pm] On reassessment, patient is hemodynamically stable with no acute medical complaints. Case discussed with psychiatric provider Dr. Chinchilla at [facility] psych inpatient who evaluated patient via telepsych and recommended discharge with close follow-up. I have given patient follow up with our complex case manager to be seen by our outpatient by [facility] For behavioral outbursts. Patient aware of a call from our complex case manager to schedule for appointment(s) and verbalizes understanding of the importance of following up. Disposition: Discharge Discharge Plan Discharge Patient Disposition: Home Clinical Impression: Aggressive behavior Condition: Stable Prescriptions: No Action magnesium chloride PO DAILY psyllium husk [Natural Fiber Supplement] PO DAILY losartan 25 mg tablet 12.5 mg PO .PM naproxen 500 mg tablet See Rx Instructions .ROUTE .COMPLEX Qty: 120 1RF Dose Instruction: TAKE 1 TABLET BY MOUTH TWO TIMES DAILY Rx Instructions: TAKE 1 TABLET BY MOUTH TWO TIMES DAILY gabapentin 800 mg tablet See Rx Instructions .ROUTE .COMPLEX Qty: 120 2RF Dose Instruction: TAKE 1 TABLET BY MOUTH FOUR TIMES DAILY FOR chronic pain Rx Instructions: TAKE 1 TABLET BY MOUTH FOUR TIMES DAILY FOR chronic pain bupivacaine (PF) 0.25 % (2.5 mg/mL) solution 1 ml Infiltration ONCE Qty: 1 0RF tizanidine 4 mg tablet 4 mg PO BID PRN (Reason: muscle spasticity) Qty: 60 0RF topiramate 50 mg tablet 50 mg PO BID 30 Days Qty: 60 0RF verapamil 180 mg tablet extended release See Rx Instructions .ROUTE .COMPLEX Qty: 30 5RF Dose Instruction: TAKE 1 TABLET BY MOUTH EVERY DAY FOR BLOOD PRESSURE Rx Instructions: TAKE 1 TABLET BY MOUTH EVERY DAY FOR BLOOD PRESSURE metoprolol tartrate 25 mg tablet See Rx Instructions .ROUTE .COMPLEX Qty: 60 5RF Dose Instruction: TAKE 1 TABLET BY MOUTH TWICE DAILY FOR HIGH BLOOD PRESSURE Rx Instructions: TAKE 1 TABLET BY MOUTH TWICE DAILY FOR HIGH BLOOD PRESSURE losartan 25 mg tablet See Rx Instructions .ROUTE .COMPLEX Qty: 30 2RF Dose Instruction: TAKE 1 TABLET BY MOUTH EVERY DAY Rx Instructions: TAKE 1 TABLET BY MOUTH EVERY DAY duloxetine 30 mg capsule,delayed release(DR/EC) 30 mg PO DAILY Qty: 30 5RF Discharge Orders: Discharge ED (Routine); Ordered 11/29/21 Ordered By: Adina Ngo Referrals: Keon Garcia MD [Primary Care Provider] - Discharge Diet: Advance as tolerated Discharge Activity: Increase activity as tolerated Patient Instructions: Conduct Disorder in Children (ED) Activity Restrictions/Additional Instructions: Please come back to the emergency room if you need help, have any hallucinations, or you have any depression or have thoughts about hurting yourself or other people. Coding Level of Care Code ED Assistant Superintendent For Curriculum for Cindy Fwd Exam Comprehensive
[2021-11-29 21:54] VITALS: BP 145/96
--- NOTE | 2021-12-02 11:10 | DCPLANNER ---
Addendum entered by Kristin Urena 12/06/21 08:10: senior group manager was told that patient was sent paperwork to fill out and return to [facility]. Patient had an appointment on 12.03.21 with [facility] Original Note: senior group manager had message to refer patient to [facility]. senior group manager sent an email to Margy Escobedo, new patient transitions rn care coordinator at [facility]. Patients information will be printed and reviewed. Clinic will call patient with appointment information.
== END 2021-11-29 22:38 | disposition home or self-care (01) ==
LOC: ER 21:00
PROVIDERS: Emergency Provider Emergency Medicine; PCP Family Medicine Adult Medicine
DX: R45.6 Violent behavior (principal)
CPT/HCPCS: 96372; 99285; J2250

== ENCOUNTER → 2021-12-10 14:34 | Outpatient (BNVA) | payer MEDICARE, MEDICAID, SELFPAY | PROVIDERS: PCP Family Medicine Adult Medicine; Visit Provider Orthopaedic Surgery | DX: M54.16 Radiculopathy, lumbar region (principal); M41.9 Scoliosis, unspecified; Z98.1 Arthrodesis status | CPT/HCPCS: 72070; 72110; 99204 ==

== ENCOUNTER → 2021-12-11 13:56 | Outpatient (BNVA) | payer MEDICARE, MEDICAID, SELFPAY | PROVIDERS: PCP Family Medicine Adult Medicine; Visit Provider Anesthesiology Pain Medicine | DX: G89.29 Other chronic pain (principal); M47.816 Spondylosis without myelopathy or radiculopathy, lumbar region; Z87.891 Personal history of nicotine dependence | CPT/HCPCS: 64493; 64494; 64495; J3490 ==

== ENCOUNTER 2021-12-30 15:50 | Outpatient (CLI) | payer MEDICARE, MEDICAID, SELFPAY ==
--- NOTE | 2021-12-30 15:55 | XR_ITS ---
WS: [id number] KUB, AP view, 12/30/2021 Clinical Data: Renal Calculi Comparison: KUB, 07/02/2021. Findings: There are calcifications and vascular occlusion coils overlying the left kidney. There may be calcifi cations overlying the right kidney but fecal material and bowel gas obscure detail. There is a large amount of fecal material and bowel gas throughout the abdomen. There is a levoscoliosis with fusion r ods on the right side of the thoracic and lumbar spines. There is severe osteoarthritis of the lumbar spine with a right bony fusion XR/XR KUB [id number] Impression: 1. Probable bilateral renal calcifications unchanged. 2. Corrective scoliosis surgery of the thoracic and lumbar spine with osteoarth ritis of the lumbar spine.
== END 2021-12-30 15:51 | disposition home or self-care (01) ==
LOC: RAD 15:52
PROVIDERS: PCP Family Medicine Adult Medicine; Visit Provider Urology
DX: N20.0 Calculus of kidney (principal); M41.50 Other secondary scoliosis, site unspecified
CPT/HCPCS: 74018; 99213

== ENCOUNTER → 2022-02-20 10:27 | Outpatient (BNVA) | payer MEDICARE, MEDICAID, SELFPAY | PROVIDERS: PCP Family Medicine Adult Medicine; Visit Provider Anesthesiology Pain Medicine | DX: G89.29 Other chronic pain (principal); M54.16 Radiculopathy, lumbar region; M79.604 Pain in right leg; M79.605 Pain in left leg | CPT/HCPCS: 99214 ==

== ENCOUNTER → 2022-04-08 13:13 | Outpatient (BNVA) | payer MEDICARE, MEDICAID, SELFPAY | PROVIDERS: PCP Family Medicine Adult Medicine; Visit Provider Anesthesiology Pain Medicine | DX: G89.29 Other chronic pain (principal); M47.816 Spondylosis without myelopathy or radiculopathy, lumbar region | CPT/HCPCS: 64635; 64636 ==

== ENCOUNTER → 2022-04-24 11:14 | Outpatient (BNVA) | payer MEDICARE, MEDICAID, SELFPAY | PROVIDERS: PCP Family Medicine Adult Medicine; Visit Provider Anesthesiology Pain Medicine | DX: G89.29 Other chronic pain (principal); M54.16 Radiculopathy, lumbar region | CPT/HCPCS: 99214 ==

== ENCOUNTER → 2024-07-14 11:11 | Outpatient (BNVA) | payer MEDICARE, MEDICAID, SELFPAY | PROVIDERS: PCP Family Medicine Adult Medicine; Visit Provider Family Medicine | DX: I10 Essential (primary) hypertension (principal) | CPT/HCPCS: 80053; 80061; 84443; 85025 ==

== ENCOUNTER 2024-08-17 10:15 | Outpatient (RCR) | payer MEDICARE, MEDICAID, SELFPAY | END 2024-09-12 23:59 | disposition home or self-care (01) | LOC: SPT 10:15 | PROVIDERS: PCP Family Medicine; Visit Provider Family Medicine | DX: M54.50 Low back pain, unspecified (principal); G89.29 Other chronic pain | CPT/HCPCS: 97110; 97161 ==

== ENCOUNTER 2024-09-13 05:00 | Outpatient (RCR) | payer MEDICARE, MEDICAID, SELFPAY | END 2024-10-13 23:59 | disposition home or self-care (01) | LOC: SPT 05:00 | PROVIDERS: PCP Family Medicine; Visit Provider Family Medicine | DX: M54.50 Low back pain, unspecified (principal); G89.29 Other chronic pain | CPT/HCPCS: 97110 ==

== ENCOUNTER 2024-11-11 14:07 | Outpatient (CLI) | payer MEDICARE, MEDICAID, SELFPAY ==
--- NOTE | 2024-11-11 14:17 | XR_ITS ---
WS: [id number] Exam: XR knee RT 3V* [id number] Date/Time of Exam: 11/11/2024 2:36 PM Reason For Exam: acute right knee pain No fracture. The joint compartments are preserved. No joint effusion. Normal soft tissues. XR/XR knee RT 3V* [id number] IMPRESSION: 1. Negative RIGHT knee.
== END 2024-11-11 14:08 | disposition home or self-care (01) ==
PROVIDERS: PCP Family Medicine; Visit Provider Family Medicine
DX: M25.561 Pain in right knee (principal); E78.5 Hyperlipidemia, unspecified
CPT/HCPCS: 73562; 80053; 80061